=== PATIENT | female | born 1955 | race Caucasian/White ===

== ENCOUNTER → 2019-03-24 15:36 | Outpatient (CLI) | payer MEDICARE, OTHER, SELFPAY ==
--- NOTE | 2019-03-24 15:39 | DI.MRI.S_ITS ---
PROCEDURE: MR LUMBAR SPINE WO CON INDICATIONS: Axial low back pain TECHNIQUE: Noncontrast sagittal T1 spin echo and T2 fast echo, sagittal STIR, axial T1 and T2 fast spin echo through the lumbar spine. In cases with scoliosis, additional coronal T2 fast spin echo may be performed. COMPARISON: None. FINDINGS: Image quality: Excellent. Alignment and Curvature: There is normal bony alignment. Bone Marrow: No fracture. Multilevel degenerative endplate sclerosis and spurring. Diffuse facet arthropathy. Spinal Cord: Conus medullaris terminates at the L1 level. Visualized cord demonstrates normal signal and size. Paraspinous Soft Tissues: No paravertebral masses. L1-L2: Normal appearance. L2-L3: Normal appearance. L3-L4: Dorsal epidural lipomatosis is present. There is moderate canal narrowing. Partial effacement of both lateral recesses with bilaterally symmetric appearance. Moderate left foraminal stenosis with nerve root compression. Severe right foraminal stenosis with nerve root compression. L4-L5: Posterior annular fissure. Dorsal epidural lipomatosis and mild-moderate central canal narrowing. Partial effacement of both lateral recesses with bilaterally symmetric appearance. Mild left foraminal narrowing. Mild to moderate right foraminal stenosis with slight nerve root compression L5-S1: No central canal narrowing. Lateral recesses appear grossly patent. No definite foraminal stenosis IMPRESSION: Mild-moderate central canal narrowing at L3-L4 and L4-L5 although this is partially due to dorsal epidural lipomatosis Severe right L3-L4 foraminal narrowing Moderate left of L4 foraminal narrowing Mild-moderate right L4-L5 foraminal stenosis Dictated by: Josesito Morales M.D. on 03/24/2019 at 17:14 Approved by: Josesito Morales M.D. on 03/24/2019 at 17:20
== END ==
PROVIDERS: PCP Family Medicine; Visit Provider Physical Medicine & Rehabilitation
DX: M54.5 Low back pain (principal); M48.061 Spinal stenosis, lumbar region without neurogenic claudication; E88.2 Lipomatosis, not elsewhere classified
CPT/HCPCS: 72148

== ENCOUNTER 2019-04-29 13:25 | Outpatient (CLI) | payer MEDICARE, OTHER, SELFPAY ==
[2019-04-29] VITALS (9 sets, daily range): BP systolic 139–172; BP diastolic 63–84; PULSE 68–76; RESP 16–18; TEMP 36.2; O2SAT 98–100
--- NOTE | 2019-04-29 13:28 | DI.RAD.S_ITS ---
PROCEDURE: PAIN L/S FACET INJ/BLK 1ST PAULA COMPARISON: None. INDICATIONS: 14850, [id number]- Bilateral L3/4, L4/5 Facet Joint Injection FINDINGS: Fluoroscopic spot filming was performed to verify placement of spinal needles at the L3-L4, L4-L5 level(s), as labeled on the films. Appropriate location(s) of the needle tip(s) was confirmed by injection of iodinated contrast. Dictated by: Josesito Morales M.D. on 04/29/2019 at 16:13 Approved by: Josesito Morales M.D. on 04/29/2019 at 16:13
[2019-04-29] MEDS: MIDAZOLAM 5 MG/5 ML VIAL IV (14:11)
[2019-04-29] MEDS: fentaNYL 100 MCG/2 ML INJ 50 MCG IV (14:12)
[2019-04-29] MEDS: IOPAMIDOL 15 ML VIAL 3 ML INJ (14:16)
[2019-04-29] MEDS: BETAMETHASONE 30 MG/5 ML MDV 12 MG INJ (14:17)
[2019-04-29] MEDS: BUPIVACAINE 0.5% (PF) VIAL 2 ML INJ (14:17)
--- NOTE | 2019-04-29 14:25 | P.PCN_ITS ---
Procedures Date/Time Date of procedure: 04/29/19 Time of procedure: 14:25 General Procedure description: PREOP DIAGNOSIS 1. FACET ARTHROPATHY 2. AXIAL LBP 3. MULTILEVEL DDD POST OP DIAGNOSIS 1. FACET ARTHROPATHY 2. AXIAL LBP 3. MULTILEVEL DDD PROCEDURES 1. FLUORSCOPICALLY GUIDED CONTRAST CONTROLLED FACET JOINT INJECTIONS BILATERAL L3/4, L4/5 PHYSICIAN: Steven Sol DO INDICATIONS: Kristy is referred by for treatment of Axial LBP FINDINGS Multilevel Facet Arthropathy with Clinically significant axial LBP DESCRIPTION OF PROCEDURE Fluoroscopically guided, contrast-controlled bilateral L3/4, L4/5 facet joint in jections. Following review of allergy and review of potential side effects and complications, including, but not necessarily limited to, infection, allergic reaction, local tissue breakdown, stroke, temporary or permanent nerve injury, paralysis, and possible , the patient indicated that the patient understood and agreed to proceed. An informed consent document was signed by the patient, witnessed by a nurse, and placed in the patient's chart. Additionally, other treatment options including medications, modalities, and physical therapy were reviewed with the patient. After review of previous anaesthesic history and IV conscious sedation the patient was deemed safe to proceed with todays procedure with IV conscious sedation as ASA class II designation. Safety time-out was performed to confirm patient ID, procedure to be performed and site of procedure. IV sedation was accomplished with a combination of 3mg of Versed and 50mcg of Fentanyl was administered by the RN after DO order, titrated to patient comfort during the course of the procedure while the patient remained responsive to all verbal commands. In the prone position, following sterile prep and drape of the lumbar region, the posterior aspect of the L3/4, L4/5 facet joints were identified fluoroscopically. The skin was anesthetized via a 25-gauge 1.5-inch needle with 1% lidocaine solution into the corresponding facet joints. At this point, a 22- gauge 3.5-inch spinal needle was atraumatically introduced and advanced under fluoroscopic guidance into the corresponding facet joints. Following negative aspiration, injections of approximately 0.2-cc of Isovue 200 confirmed interarticular placement without vascular uptake. The identical procedure was then performed at the L3/4, L4/5 facet joints on the left. Radiological data, including multiple fluoroscopic views of the lumbosacral spine, reveal a spinal needle at the L3/4, L4/5 facet joints bilaterally. Subsequent views show flow of contrast material both superiorly and inferiorly within the joint space without vascular or intrathecal uptake. At this point, a total of 0.5cc including a mixture of 0.25cc Marcaine and 0.25cc betamethasone was injected without complication into each of the corresponding facet joints. The patient tolerated the procedure well without signs or symptoms of complications prior to transfer to the recovery area continued monitoring without incident. The patient was then transferred to the recovery area where they were observed for an appropriate period of time after the injection. The patient reported a VAS score of 7 prior to the procedure and a post-procedure VAS of 1. Total Fluoroscopy Time: 8 seconds Total Conscious Sedation Time: 24min POST OP INSTRUCTIONS The patient was provided a Pain Log to continue to record their response to the target-specific procedure prior to follow-up visit with their referring physician. Additionally, specific post-injection care instructions and a contact number to our office were provided if concerns arise regarding possible complications associated with the procedure are suspected. Steven Sol DO Complications: none
--- NOTE | 2019-04-29 14:32 | PC.NURSE ---
ACCEPTED CARE OF PT IN POST PROC AREA AT 1432. PT IN STABLE CONDITION.
--- NOTE | 2019-04-29 16:16 | PC.NURSE ---
at 1421 able to sit,stand and transfer self to w/c, painfree, transfering care to amrik wilson
== END 2019-04-29 14:58 | disposition home or self-care (01) ==
LOC: RAD 13:27
PROVIDERS: PCP Family Medicine; Referring Provider Physical Medicine & Rehabilitation; Visit Provider Physical Medicine & Rehabilitation
DX: M47.816 Spondylosis without myelopathy or radiculopathy, lumbar region (principal); M54.5 Low back pain; M51.36 Other intervertebral disc degeneration, lumbar region
CPT/HCPCS: 64493; 64494; 99152; J0702; J2250; J3010

== ENCOUNTER → 2019-07-12 10:25 | Outpatient (CLI) | payer MEDICARE, OTHER, SELFPAY ==
[2019-07-13 21:53] LABS: COVID19 Sendout Not Detected (Not Detect)
== END ==
PROVIDERS: PCP Family Medicine; Visit Provider Family Medicine
DX: Z01.812 Encounter for preprocedural laboratory examination (principal)
CPT/HCPCS: 87635

== ENCOUNTER 2019-07-15 13:39 | Outpatient (CLI) | payer MEDICARE, OTHER, SELFPAY ==
[2019-07-15] VITALS (10 sets, daily range): BP systolic 131–196; BP diastolic 61–87; PULSE 60–69; RESP 15–16; TEMP 36.6; O2SAT 96–100
--- NOTE | 2019-07-15 13:43 | DI.RAD.S_ITS ---
PROCEDURE: PAIN L/S FACET INJ/BLK 1ST PAULA COMPARISON: [facility], , PAIN L/S FACET INJ/BLK 1ST PAULA, 04/29/2019, 14:13. INDICATIONS: SPONDYLOSIS Fluoroscopic spot filming was performed to verify placement of spinal needles at the L3, L4, L5 level(s), as labeled on the films. Appropriate location(s) of the needle tip(s) was confirmed by injection of iodinated contrast. Dictated by: Josesito Morales M.D. on 07/15/2019 at 16:01 Approved by: Josesito Morales M.D. on 07/15/2019 at 16:02
[2019-07-15] MEDS: fentaNYL 100 MCG/2 ML INJ 50 MCG IV (14:30)
[2019-07-15] MEDS: MIDAZOLAM 5 MG/5 ML VIAL IV (14:30)
[2019-07-15] MEDS: BUPIVACAINE 0.5% (PF) VIAL 2 ML INJ (14:40)
[2019-07-15] MEDS: LIDOCAINE 1% 20 ML 10 ML INJ (14:40)
[2019-07-15] MEDS: IOPAMIDOL 15 ML VIAL 3 ML INJ (14:40)
--- NOTE | 2019-07-15 14:42 | PC.NURSE ---
ASSISTING PT OFF TABLE AND TRANSPORTING TO POST PROC AREA IN STABLE CONDITION. PASSING RN CARE OF PT TO [facility].
--- NOTE | 2019-07-15 14:47 | PM.PROC.1 ---
Procedures Date/Time Date of procedure: 07/15/19 Time of procedure: 14:47 General Procedure description: Procedure description: 1. FACET ARTHROPATHY PROCEDURES: 1. BILATERAL- L4, L5 and S1 DIAGNOSTIC MB BLOCKS with LA Anesthetic PHYSICIAN: Steven Sol DO INDICATIONS Kristy is referred by for treatment of Bilateral Axial LBP. DESCRIPTION OF PROCEDURE Fluoroscopically guided, contrast-controlled bilateral L4, L5 and S1 medial branch blocks with 0.5cc of 0.5% Marcaine. Following review of allergy and review of potential side effects and complications, including, but not necessarily limited to, infection, allergic reaction, local tissue breakdown, nerve injury, paralysis, stroke and possible , the patient indicated that the patient understood and agreed to proceed. An informed consent document was signed by the patient, witnessed by a nurse, and placed in the patient's chart. After review of previous anaesthesic history and IV conscious sedation the patient was deemed safe to proceed with todays procedure with IV conscious sedation as ASA class II designation. Safety time-out was performed to confirm patient ID, procedure to be performed and site of procedure. IV sedation was accomplished with a combination of 2mg of Versed and 50mcg of Fentanyl was administered by the RN after DO order, titrated to patient comfort during the course of the procedure while the patient remained responsive to all verbal commands In the prone position, following sterile prep and drape of the lumbar region, the right L4, L5 and S1 anatomical location of the medial branch of the dorsal ramus was identified fluoroscopically. Subsequently an anesthetic skin wheal using 1% lidocaine solution was initiated at each of the anatomical spots. Subsequently then a 22-gauge 3.5-inch spinal needle was atraumatically introduced and advanced under fluoroscopic guidance at each of the corresponding sites at the right L4, L5 and S1 MB. After negative aspiration, 0.2cc of Isovue 200 was injected, confirming placement without vascular or intrathecal uptake. Subsequently then 0.5cc of 0.5% Marcaine solution was injected at each of the corresponding sites at the right L4, L5 and S1 medial branch locations. The identical procedure was replicated on the left. The patient tolerated the procedure well without signs or symptoms of complications prior to transfer to the recovery area continued monitoring without incident. Post-procedure, the patient was monitored initiating provocative activities to measure the amount of relief from block of the facetogenic pain. The patient reported a VAS of 7 prior to the procedure and a post-procedure VAS of 1. It has been a pleasure to assist in the diagnostic and therapeutic care of your patient. Total Fluoroscopy Time: 9 seconds Total Conscious Sedation Time: 24min POST OP INSTRUCTIONS The patient was provided with a Pain Log to complete over the next several hours and subsequent days prior to the patient's follow up with the ordering physician. 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 The patient is aware, was provided, once again, with a Pain Log and will follow up with the referring physician for review and clinical correlation Steven Sol DO Complications: none
== END 2019-07-15 15:12 | disposition home or self-care (01) ==
PROVIDERS: PCP Family Medicine; Referring Provider Physical Medicine & Rehabilitation; Visit Provider Physical Medicine & Rehabilitation
DX: M47.816 Spondylosis without myelopathy or radiculopathy, lumbar region (principal); M47.817 Spondylosis without myelopathy or radiculopathy, lumbosacral region; M54.5 Low back pain
CPT/HCPCS: 64493; 64494; 99152; J2250; J3010

== ENCOUNTER → 2019-10-11 08:29 | Outpatient (CLI) | payer MEDICARE, OTHER, SELFPAY ==
[2019-10-12 21:10] LABS: COVID19 Sendout Not Detected (Not Detect)
== END ==
PROVIDERS: PCP Family Medicine; Visit Provider Physician Assistant
DX: Z11.59 Encounter for screening for other viral diseases (principal)
CPT/HCPCS: 87635

== ENCOUNTER 2019-10-14 10:07 | Outpatient (CLI) | payer MEDICARE, OTHER, SELFPAY ==
[2019-10-14] VITALS (13 sets, daily range): BP systolic 125–192; BP diastolic 71–102; PULSE 65–71; RESP 11–20; TEMP 36.4; O2SAT 94–100
--- NOTE | 2019-10-14 10:09 | DI.RAD.S_ITS ---
PROCEDURE: PAIN L/S MED/LAT N RFA BILAT INDICATIONS: SPONDYLOSIS COMPARISON: None. FINDINGS: Fluoroscopic spot filming was performed to verify placement of spinal needles at the L4, L5, S1 level(s), as labeled on the films. Appropriate location(s) of the needle tip(s) was confirmed by injection of iodinated contrast. Dictated by: Josesito Morales M.D. on 10/14/2019 at 14:24 Approved by: Josesito Morales M.D. on 10/14/2019 at 14:24
[2019-10-14] MEDS: fentaNYL 100 MCG/2 ML INJ 50 MCG IV (11:38)
[2019-10-14] MEDS: MIDAZOLAM 5 MG/5 ML VIAL IV ×2 (11:40→12:00)
[2019-10-14] MEDS: LIDOCAINE 1% 20 ML 10 ML INJ (12:02)
[2019-10-14] MEDS: BUPIVACAINE 0.5% (PF) VIAL 5 ML INJ (12:02)
--- NOTE | 2019-10-14 12:20 | P.PCN_ITS ---
Date/Time/Diagnoses Date of procedure: 10/14/19 Time of procedure: 12:24 Pre-procedure diagnosis: 1. RECALCITRANT FACET ARTHROPATHY Post-procedure diagnosis: same Procedure Notes Procedure: 1. BILATERAL L4 AND L5 MEDIAL BRANCH RADIOFREQUENCY NEUROTOMY AND S1 DORSAL RAMUS BRANCH RADIOFREQUENCY NEUROTOMY Indications: Kristy is referred by Dr. Knutson for treatment of facet arthropathy. Physician: Steven Sol Total Fluoroscopy time (seconds): 19 Total sedation minutes: 38 Complications: none Procedure in detail & Post-procedure care: DESCRIPTION OF PROCEDURE Bilateral L4 and L5 medial branch radiofrequency neurotomy and bilateral S1 dorsal ramus radiofrequency neurotomy under fluoroscopy with conscious sedation. The patient is well known to this clinic having undergone previous facet injections with good but temporary relief. The patient has experienced appropriate, concordant relief with previous facet and median branch blocks but the patient's pain has been recalcitrant to further conservative measures. Therefore, based upon the patient's relief and persistent symptoms, the patient is considered an appropriate candidate for facet rhizotomy. All of the patient's questions regarding the risks versus benefits of the procedure, including, but not limited to, bleeding, infection, temporary as well as lasting nerve injury, paralysis, stroke, and , as well treatment alternatives were answered to satisfaction. After obtaining informed consent, denial of pertinent drug allergies, as well as being made aware of the potential risks of bleeding, infection, spinal cord trauma, paralysis, temporary and permanent nerve damage, seizure, stroke, and possible , the patient was brought to the fluoroscopy suite and positioned prone on the fluoroscopy table. The lumbar region was prepped with Betadine and covered with a fenestrated drape in the usual sterile fashion. Appropriate monitors applied including pulse oximeter, pulse, and blood pressure for regular monitoring throughout the procedure. After review of previous anaesthesic history and IV conscious sedation the patient was deemed safe to proceed with today's procedure with IV conscious sedation as ASA class II designation. Safety time-out was performed to confirm patient ID, procedure to be performed and site of procedure. IV sedation was accomplished with a combination of 7mg of Versed and 50mcg of Fentanyl administered by the RN after DO order, titrated to patient comfort during the course of the procedure while the patient remained responsive to all verbal commands. After local infiltration using 1% lidocaine, under fluoroscopic guidance, a 10- cm RF insulated needle with a 10-mm active tip was positioned parallel to the junction of the right sacral ala and the superior articulating process where the S1 dorsal ramus resides. Needle placement was confirmed with motor stimulation of .5v on the right which produced local stimulation without radicular component. The stimulation was then increased to 1.5v with, once again, only local multifidus stimulation without radicular component. The needle was then removed and the identical procedure was performed along the length of the right L5 medial branch with motor stimulation at .7v on the right. The identical procedure was once again performed along the length of the right L4 medial branch with motor stimulation of .5v on the right. The medial branches were then anesthetised with 0.5% Marcaine. This was then followed by two discreet lesions performed at 80 degrees Celsius for 90 seconds each. The identical procedure was repeated on the left. The patient tolerated the procedure well without signs or symptoms of complications prior to transfer to the recovery area continued monitoring without incident. The patient was then transferred to the recovery area where they were observed for an appropriate period of time after the injection. The patient reported a VAS score of 7 prior to the procedure and a post-procedure VAS of 0. POST OP INSTRUCTIONS The patient was provided a Pain Log to continue to record the patient's response to the target-specific procedure prior to the patient's follow-up visit with the referring physician. Additionally, specific post-injection care instructions and a contact number to our office were provided if concerns arise regarding possible complications associated with the procedure are suspected.
--- NOTE | 2019-10-14 13:36 | PC.NURSE ---
Patient returned via wheelchair post procedure, alert and able to geto from the wheelchair to chair with standby assistance. Resumed monitoring from [facility].
== END 2019-10-14 12:58 | disposition home or self-care (01) ==
LOC: RAD 10:08
PROVIDERS: PCP Family Medicine; Referring Provider Family Medicine; Visit Provider Physical Medicine & Rehabilitation
DX: M47.816 Spondylosis without myelopathy or radiculopathy, lumbar region (principal); M47.817 Spondylosis without myelopathy or radiculopathy, lumbosacral region
CPT/HCPCS: 64635; 64636; 99152; 99153; J2250; J3010

== ENCOUNTER → 2020-01-26 11:27 | Outpatient (CLI) | payer MEDICARE, OTHER, SELFPAY ==
[2020-01-26 12:32] LABS: COVID19 -Nasal RAPID Negative (Negative)
== END ==
PROVIDERS: PCP Family Medicine; Visit Provider Physical Medicine & Rehabilitation
DX: Z01.812 Encounter for preprocedural laboratory examination (principal); Z11.59 Encounter for screening for other viral diseases
CPT/HCPCS: 87635; C9803

== ENCOUNTER 2020-01-27 13:02 | Outpatient (CLI) | payer MEDICARE, OTHER, SELFPAY ==
[2020-01-27] VITALS (8 sets, daily range): BP systolic 108–155; BP diastolic 57–79; PULSE 60–74; RESP 13–18; TEMP 36.6; O2SAT 97–100
--- NOTE | 2020-01-27 13:04 | DI.RAD.S_ITS ---
PROCEDURE: XR CERVICAL SPINE 4V OR 5V INDICATIONS: progressive neck pain. TECHNIQUE: 5 views of the cervical spine acquired. COMPARISON: None. FINDINGS: Bones: No fractures or dislocations to the T1 level. Oblique images demonstrate bilateral C5 through C7 foraminal stenosis, symmetric. No trauma induced bony foraminal stenoses. Soft tissues: No prevertebral soft tissue swelling. IMPRESSION: No trauma found. Moderate to moderately severe degenerative disc disease is present at C5-6 and C6-7 in addition to symmetric bilateral facet osteoarthritis at these 2 levels producing moderate foraminal stenosis at these areas. Dictated by: Robbie Alvarez M.D. on 01/27/2020 at 14:06 Approved by: Robbie Alvarez M.D. on 01/27/2020 at 14:07
--- NOTE | 2020-01-27 13:04 | DI.RAD.S_ITS ---
PROCEDURE: PAIN L INTERLAMINAR/CAUDAL INJ INDICATIONS: SPONDYLOSIS COMPARISON: None. FINDINGS: Fluoroscopic spot filming was performed to verify placement of spinal needles at the posterior midline at L 4-L5 interlaminar level(s), as labeled on the films. Appropriate location(s) of the needle tip(s) was confirmed by injection of iodinated contrast. IMPRESSION: Dorsal interlaminar L4-L5 needle tip localization for epidural steroid injection. Dictated by: Robbie Alvarez M.D. on 01/27/2020 at 15:23 Approved by: Robbie Alvarez M.D. on 01/27/2020 at 15:23
[2020-01-27] MEDS: fentaNYL 100 MCG/2 ML INJ 50 MCG IV (14:05)
[2020-01-27] MEDS: MIDAZOLAM 5 MG/5 ML VIAL IV (14:05)
[2020-01-27] MEDS: BUPIVACAINE 0.25% (PF) VIAL 2 ML INJ (14:16)
[2020-01-27] MEDS: IOPAMIDOL 15 ML VIAL 3 ML INJ (14:17)
[2020-01-27] MEDS: DEXAMETHASONE 10 MG/ML VIAL 20 MG INJ (14:17)
[2020-01-27] MEDS: BETAMETHASONE 30 MG/5 ML MDV 6 MG INJ (14:17)
--- NOTE | 2020-01-27 14:21 | P.PCN_ITS ---
Date/Time/Diagnoses Date of procedure: 01/27/20 Time of procedure: 14:21 Pre-procedure diagnosis: 1. HNP WITH RADICULAR FEATURES 2. MULTILEVEL CENTRAL STENOSIS Post-procedure diagnosis: same Procedure Notes Procedure: 1. FLUOROSCOPICALLY GUIDED CONTRAST CONTROLLED INTERLAMINAR EPIDURAL STEROID INJECTION - L4/5 Indications: Kristy is referred by Dr. Knutson for treatment of Bilateral Foraminal Stenosis L>R LE symptoms. Physician: Steven Sol Total Fluoroscopy time (seconds): 6 Total sedation minutes: 11 Complications: none Procedure in detail & Post-procedure care: FINDINGS Multilevel Central Spinal Stenosis with Nerve Root Compression DESCRIPTION OF PROCEDURE Fluoroscopically guided, contrast-controlled L4/5 translaminar epidural steroid injection. Following review of allergy and review of potential side effects and complications, including, but not necessarily limited to, infection, allergic reaction, local tissue breakdown, temporary as well as permanent nerve injury, paralysis, stroke and possible , the patient indicated that the patient understood and agreed to proceed. An informed consent document was signed by the patient, witnessed by a nurse, and placed in the patient's chart. Additionally, other treatment options including modalities, medications, and physical therapy were reviewed with the patient. After review of previous anaesthesic history and IV conscious sedation the patient was deemed safe to proceed with today?s procedure with IV conscious sedation as ASA class II designation. Safety time-out was performed to confirm patient ID, procedure to be performed and site of procedure. IV sedation was accomplished with a combination of 2mg of Versed and 50mcg of Fentanyl was administered by the RN after DO order, titrated to patient comfort during the course of the procedure while the patient remained responsive to all verbal commands. In the prone position, following sterile prep and drape of the lumbar region, the L4/5 translaminar space was identified fluoroscopically. The skin was anesthetized via a 25-gauge, 1.5-inch needle with 1% lidocaine solution. At this point, a 22-gauge short bevel spinal needle was atraumatically introduced and advanced under fluoroscopic guidance into the region of the L4/5 translaminar space. Depth was confirmed on lateral view. Radiological data, including multiple fluoroscopic views of the lumbar spine, reveal a spinal needle at the L4/5 translaminar space. Lateral views then show placement of the needle in the epidural space. Subsequent views show contrast material flowing superiorly and inferiorly in the epidural space. No vascular or intrathecal uptake is observed. At this point, using loss of resistance technique with saline and air, the epidural space was entered. This was confirmed following negative aspiration with injection of approximately 1.5cc of Isovue 200, showing excellent epidural flow without vascular or intrathecal uptake. At this point, 1cc of 1% lidocaine solution combined with 3cc or 20mg of dexamethasone and 6mg of betamethasone was injected without incident. The patient tolerated the procedure well without signs or symptoms of c omplications prior to transfer to the recovery area continued monitoring without incident. The patient was then transferred to the recovery area where they were observed for an appropriate period of time after the injection. The patient reported a VAS score of 6 prior to the procedure and a post- procedure VAS of 0. POST OP INSTRUCTIONS The patient was provided a Pain Log to continue to record their response to the target-specific procedure prior to follow-up visit with their referring physician. Additionally, specific post-injection care instructions and a contact number to our office were provided if concerns arise regarding possible complications associated with the procedure are suspected.
== END 2020-01-27 14:43 | disposition home or self-care (01) ==
LOC: RAD 13:03
PROVIDERS: PCP Family Medicine; Referring Provider Family Medicine; Visit Provider Physical Medicine & Rehabilitation
DX: M51.16 Intervertebral disc disorders with radiculopathy, lumbar region (principal); M48.061 Spinal stenosis, lumbar region without neurogenic claudication; M50.122 Cervical disc disorder at C5-C6 level with radiculopathy; M47.22 Other spondylosis with radiculopathy, cervical region; M48.02 Spinal stenosis, cervical region
CPT/HCPCS: 62323; 72050; 99152; J0702; J1100; J2250; J3010

== ENCOUNTER 2020-04-17 15:35 | Emergency (ER) | payer MEDICARE, OTHER, SELFPAY ==
[2020-04-17 15:37] VITALS: BP 187/77; PULSE 90; RESP 18; TEMP 36.7; O2SAT 100; BMI 34.3
--- NOTE | 2020-04-17 15:49 | DI.RAD.S_ITS ---
PROCEDURE: XR WRIST RT MIN 3V INDICATIONS: fall with injury TECHNIQUE: 4 views of the wrist were acquired. COMPARISON: None. FINDINGS: Bones: Question nondisplaced radial styloid fracture. This is not definite. No suspicious bony lesions. Scaphoid view: Scaphoid intact. Soft tissues: No suspicious soft tissue calcifications. IMPRESSION: Question nondisplaced radial styloid fracture. This is not definite. Suggest correlation with clinical exam. CT may be helpful. Dictated by: Jose De Paz M.D. on 04/17/2020 at 15:59 Approved by: Jose De Paz M.D. on 04/17/2020 at 16:00
--- NOTE | 2020-04-17 16:13 | ED_ITS ---
HPI - Extremity Injury (Upper) General Chief Complaint: Extremity Injury, Upper Stated Complaint: Fall yesterday, right wrist pain Time Seen by Provider: 04/17/20 15:44 Source: patient Mode of arrival: Ambulatory Limitations: no limitations History of Present Illness HPI narrative: Patient is a 65-year-old female who presents with right wrist injury. She fell yesterday will putting something onto a Hutch. She is not sure exactly how she fell that she fell and landed on her right his side. She continues to have right wrist pain she did have some right hip pain but is ambulatory without any difficulty. No head injury or loss of consciousness. MD complaint: injury to: right and wrist Related Data Home Medications Medication Instructions Recorded Confirmed cbd/thc lotion TOPICAL PRN 10/23/18 12/31/19 omeprazole PO PRN 10/23/18 12/31/19 oxycodone 5 mg capsule 5 mg PO Q4-6H PRN 10/23/18 12/31/19 tramadol 50 mg tablet 50 mg PO DAILY PRN 10/23/18 12/31/19 trastuzumab IV Q3W 04/02/19 12/31/19 fluticasone propionate 50 2 spray NASAL DAILY 05/13/19 12/31/19 mcg/actuation nasal spray,suspension hydrochlorothiazide PO DAILY 05/13/19 12/31/19 losartan PO DAILY 05/13/19 12/31/19 acetaminophen [Tylenol] 500 mg PO Q4H PRN 07/15/19 12/31/19 cetirizine 10 mg PO DAILY PRN 07/15/19 12/31/19 aspirin 81 mg tablet,delayed 81 mg PO DAILY 09/01/19 12/31/19 release bupropion HCl 150 mg 24 hr tablet, mg PO 09/01/19 12/31/19 extended release carvedilol 25 mg tablet mg PO 09/01/19 12/31/19 ascorbic acid 1,000 mg PO 12/31/19 12/31/19 es-evnvepywtywo-okirrbrj powder effervescent pack biotin 1 mg tablet 1 mg PO DAILY 12/31/19 12/31/19 duloxetine 20 mg capsule,delayed 20 mg PO BID 12/31/19 12/31/19 release Allergies Allergy/AdvReac Type Severity Reaction Status Date / Time diphenhydramine Allergy causes my Verified 12/31/19 15:50 [From Benadryl] body to jerk gabapentin AdvReac Severe hallucinati Verified 12/31/19 15:50 ons Review of Systems Review of Systems Narrative: GENERAL: Denies chills,fever HEENT: Denies throat pain RESPIRATORY: Denies dyspnea, cough, wheezing CARDIOVASCULAR: Denies chest pain, palpitations GASTROINTESTINAL: Denies nausea, vomiting MUSCULOSKELETAL: See HPI SKIN: No rash, no laceration, no pruritus NEUROLOGIC: Denies weakness, dizziness, headache, numbness 8 point review of systems is negative except for those stated above and HPI Patient History Medical History (Updated 04/17/20 @ 16:17 by Uyen Espinosa DO) Cervical radiculopathy Facet arthropathy, lumbar Herniated nucleus pulposus, L3-4 left Intraductal carcinoma of left breast Lumbosacral spondylosis with radiculopathy Surgical History History of ankle surgery History of carpal tunnel surgery History of cataract surgery History of lumpectomy Family History Mother Heart disease Breast cancer Father Heart disease Prostate cancer Stroke Social History marital status: Smoking Status: Never smoker alcohol intake: current Smoking Status: Never smoker Substance Use Type: does not use Exam Initial Vital Signs Initial Vital Signs: Vital Signs Temperature 98.1 F 04/17/20 15:37 Pulse Rate 90 04/17/20 15:37 Respiratory Rate 18 04/17/20 15:37 Blood Pressure 187/77 H 04/17/20 15:37 Pulse Oximetry 100 04/17/20 15:37 GENERAL: Well-appearing, well-nourished and in no acute distress. HEENT: Head atraumatic,EOMI, pupils reactive, face symmetric, moist mucous membranes CARDIOVASCULAR: Regular rate and rhythm without murmurs, rubs or gallops. RESPIRATORY: Breath sounds equal bilaterally, no wheezes rales or rhonchi. EXTREMITIES: Normal range of motion, no clubbing or edema. Neurovascularly intact Right wrist tenderness on radial side strong peripheral radial pulse minimal swelling no erythema. Sensation in radial median and ulnar nerves intact Right hip is non tender good internal and external rotation NEUROLOGICAL: Alert and oriented x4.Normal gait and speech. Cranial nerves II through XII grossly intact. SKIN: Warm, dry, no laceration, no petechiae, no rashes or lesions. Procedures Orthopedic Splinting/Casting Injury #1: Side: right Upper Extremity Injury Location: wrist Upper Extremity Immobilizer: wrist splint Post splinting neuro exam: intact Post splinting vascular exam: intact Placed by: Nursing Course Orders Ordered: ED Orders 04/17/20 15:49 XR wrist RT min 3V Stat Vital Signs Vital signs: Vital Signs - 8 hr 04/17/20 15:37 04/17/20 17:00 Temperature 98.1 F Pulse Rate 90 87 Respiratory Rate 18 18 Blood Pressure 187/77 H 124/67 Pulse Oximetry 100 99 MDM - Extremity Injury (Upper) Imaging Data Extremity x-ray #1: Radiologist's Impression: PROCEDURE: XR WRIST RT MIN 3V INDICATIONS: fall with injury TECHNIQUE: 4 views of the wrist were acquired. COMPARISON: None. FINDINGS: Bones: Question nondisplaced radial styloid fracture. This is not definite. No suspicious bony lesions. Scaphoid view: Scaphoid intact. Soft tissues: No suspicious soft tissue calcifications. IMPRESSION: Question nondisplaced radial styloid fracture. This is not definite. Suggest correlation with clinical exam. CT may be helpful. Dictated by: Jose De Paz M.D. on 04/17/2020 at 15:59 Discharge Plan Departure Patient Disposition: Home Clinical Impression: Closed right radial fracture Instructions: DI for Distal Radius Fracture Activity Restrictions/Additional Instructions: *You have been diagnosed with right radial fracture *What to do: Keep splint on at all times. You have a very subtle fract ure/broken bone. This will take 4-6 weeks to heal but will on the likely require any surgical intervention. Nonetheless I recommend he follow up with Orthopedics. *Continue to take medications as directed Tylenol 650 mg every 4-6 hours if needed for bosp-wu-[id number] pain *Follow up with your primary care provider in 2-3 days *Return to ER if you should have increasing pain, numbness tingling or swelling or any new, worsening or concerning symptoms Prescriptions: No Action cetirizine 10 mg Tablet 10 mg PO DAILY PRN (Reason: allergies) RF: 0 acetaminophen [Tylenol] 325 mg Capsule 500 mg PO Q4H PRN (Reason: Pain (Scale Score 1-3)) RF: 0 tramadol 50 mg tablet 50 mg PO DAILY PRNRF: 0 omeprazole PO PRNRF: 0 oxycodone 5 mg capsule 5 mg PO Q4-6H PRNRF: 0 cbd/thc lotion topical PRN (Reason: Pain (Scale Score 1-3)) RF: 0 trastuzumab IV Q3W RF: 0 losartan PO DAILY RF: 0 hydrochlorothiazide PO DAILY RF: 0 fluticasone propionate 50 mcg/actuation spray,suspension 2 spray NASAL DAILY RF: 0 carvedilol 25 mg tablet PO RF: 0 bupropion HCl 150 mg tablet extended release 24 hr PO RF: 0 aspirin [Adult Aspirin Regimen] 81 mg tablet,delayed release (DR/EC) 81 mg PO DAILY RF: 0 duloxetine [Cymbalta] 20 mg capsule,delayed release(DR/EC) 20 mg PO BID RF: 0 biotin 1 mg tablet 1 mg PO DAILY RF: 0 Emergen-C Immune Plus 1,000 mg powder effervescent in packet PO RF: 0 Referrals: Camryn Knutson DO [Primary Care Provider] -
[2020-04-17 17:00] VITALS: BP 124/67; PULSE 87; RESP 18; O2SAT 99
== END 2020-04-17 16:40 | disposition home or self-care (01) ==
PROVIDERS: Emergency Provider Emergency Medicine; PCP Family Medicine
DX: S52.91XA Unspecified fracture of right forearm, initial encounter for closed fracture (principal); W19.XXXA Unspecified fall, initial encounter; Z79.82 Long term (current) use of aspirin
CPT/HCPCS: 73110; 99281; 99283

== ENCOUNTER → 2021-07-18 13:28 | Outpatient (CLI) | payer MEDICARE, OTHER, SELFPAY ==
--- NOTE | 2021-07-18 | DI.ECHO.S_ITS ---
[facility]---------+ [facility] +---------+ : : [address] : : : : [id number] : : : : Phone: [phone]+ Echocardiogram Report + + :Name: GABRIELA QUIJANO Study Date: 07/18/2021 Height: 64 in : :[facility] ReadingLocation: Weight: 185 lb : : Gender: Female BSA: 1.9 m2 : :: 1955 Age: 66 yrs BP: 146/87 mmHg: :Reason For Study: HYPERTENSION : :Ordering Physician: ROXANN, : :PIERCE Performed By: Gisselle Fuchs : :Referring: PIERCE HACKETT : + + Interpretation Summary Normal sinus rhythm; uncontrolled hypertension. Normal LV size and wall thickness. Normal wall motion and left ventricular systolic function. Ejection fraction is 60-65%. Stage I diastolic dysfunction. Moderate left atrial enlargement. Otherwise normal chamber sizes. No significant valvular abnormalities. Procedure: A two-dimensional transthoracic echocardiogram with color flow and Doppler was performed. The study quality was technically adequate. There is no prior echocardiogram noted for this patient. The patient was in sinus rhythm with heart rates between 58-66 bpm during the exam. Left Ventricle: The left ventricle is normal in size and wall thickness. The ejection fraction is estimated to be 60-65%. Right Ventricle: The right ventricle is normal in size and function. Atria: The left atrium is moderately dilated. Right atrial size is normal. There is no Doppler evidence for an interatrial shunt. Mitral Valve: The mitral valve leaflets appear borderline thickened, but open well. There is mild mitral regurgitation. Aortic Valve: The aortic valve is trileaflet. The aortic valve opens well. There is no aortic valve stenosis. No aortic regurgitation is present. Tricuspid Valve: The tricuspid valve is normal in structure and function. No tricuspid regurgitation. Pulmonic Valve: The pulmonic valve leaflets are thin and pliable; valve motion is normal. There is trace pulmonic regurgitation. Great Vessels: The aortic root is normal size. The dimensions of the ascending aorta are normal. The IVC is of normal diameter and collapses greater than 50% with a sniff. This suggests a low right atrial pressure of 3 mm Hg. Pericardium/ Pleura There is no pericardial effusion. There is no pleural effusion. MMode/2D Measurements & Calculations LVIDd: 4.8 cm LVOT diam: 2.0 cm LVIDs: 3.1 cm Ao root diam: 2.8 cm FS: 34.6 % asc Aorta Diam: 3.3 cm IVSd: 0.66 cm Ao Arch Diam (Prox Trans): 2.9 cm LVPWd: 0.78 cm LV glez. diameter/BSA (cm/m^2): 2.5 LV sys. diameter/BSA (cm/m^2): 1.6 LA A2 area: 25.6 cm2 RA long axis: 5.1 cm LA A4 area: 21.3 cm2 RA area: 16.8 cm2 LA length (vol): 5.8 cm RA vol: 47.1 ml LA vol: 79.8 ml RA : 24.9 ml/m2 LA vol index: 42.1 ml/m2 IVC diam: 1.2 cm RVDd major: 5.9 cm RVD1 (basal): 3.0 cm RVD2 (mid): 2.7 cm TAPSE: 1.8 cm Doppler Measurements & Calculations Ao V2 max: 143.2 cm/sec LVOT Max Mario: 123.5 cm/sec Ao V2 mean: 97.9 cm/sec LV V1 max P.1 mmHg Ao max P.2 mmHg LV V1 VTI: 29.4 cm Ao mean P.3 mmHg LEXY(I,D): 2.9 cm2 Ao V2 VTI: 31.7 cm LEXY(V,D): 2.7 cm2 sev ratio: 0.93 LEXY indexed to BSA (cm^2/m^2): 1.5 MV E max mario: 85.9 cm/sec PA V2 max: 100.9 cm/sec MV A max mario: 112.7 cm/sec PA V2 mean: 75.8 cm/sec MV E/A: 0.76 PA mean P.4 mmHg Med Peak E' Mario: 5.8 cm/sec PA pr(Accel): 29.3 mmHg E/E' med: 14.7 Lat Peak E' Mario: 6.4 cm/sec E/E' lat: 13.3 E/e' average: 14.0 MV dec time: 0.26 sec SV(LVKAMRAN): 91.8 ml Electronically signed by: Grace Arroyo M.D. on Reading Physician:07/19/2021 05:00 PM
== END ==
PROVIDERS: PCP Family Medicine; Referring Provider Internal Medicine; Visit Provider Internal Medicine
DX: I34.0 Nonrheumatic mitral (valve) insufficiency (principal); I10 Essential (primary) hypertension
CPT/HCPCS: 93306

== ENCOUNTER → 2021-09-17 07:38 | Outpatient (CLI) | payer MEDICARE, OTHER, SELFPAY ==
--- NOTE | 2021-09-17 07:42 | DI.MRI.S_ITS ---
PROCEDURE: MR LUMBAR SPINE WO CON INDICATIONS: Radiculopathy, lumbar region TECHNIQUE: Noncontrast sagittal T1 spin echo and T2 fast echo, sagittal STIR, and T2 fast spin echo through the lumbar spine. In cases with scoliosis, additional coronal T2 fast spin echo may be performed. COMPARISON: [facility], MR, MR LUMBAR SPINE WO CON, 03/24/2019, 15:43. [facility], RG, XR L-SPINE 2-3V, 04/30/2018, 14:26. FINDINGS: Image quality: Excellent. Alignment and Curvature: 5 lumbar type vertebral bodies are present by plain film. Roughly 2 mm of retrolisthesis of L2 on L3. Bone Marrow: Marrow is of normal overall signal. No acute vertebral body compression fractures. Minimal reactive signal throughout the endplates of the lumbar and lower thoracic spine. Hemangioma within the superior L1 vertebral body. Spinal Cord: Conus medullaris terminates at the mid L1 level. Visualized cord demonstrates normal signal and size. Paraspinous Soft Tissues: No paravertebral masses. T11-T12: Moderate disc height loss and desiccation. Mild diffuse disc bulge with superimposed right paracentral protrusion. Mild canal stenosis. Minimal cord flattening. No foraminal stenosis. No significant change. T12-L1: Moderate disc desiccation. No significant canal, or foraminal stenosis. No significant change. L1-L2: Mild disc height loss and desiccation. Mild diffuse disc bulge. Mild facet hypertrophy. Mild canal stenosis. Mild bilateral foraminal stenosis. No significant change. L2-L3: Mild disc desiccation and diffuse disc bulge. Mild facet and ligamentum flavum hypertrophy. Mild canal stenosis. Mild bilateral foraminal stenosis. No significant change. L3-L4: Moderate disc height loss and desiccation. Mild diffuse disc bulge. Mild facet and ligamentum flavum hypertrophy. Mild epidural lipomatosis. Mild canal stenosis. Moderate right greater than left foraminal stenosis. No significant change L4-L5: Moderate disc height loss and desiccation. Mild diffuse disc bulge. Moderate bilateral facet and ligamentum flavum hypertrophy. Mild epidural lipomatosis. There is increased, moderate to severe canal stenosis. No change in mild bilateral foraminal stenosis. L5-S1: Mild disc height loss and desiccation. Mild diffuse disc bulge. Mild bilateral facet hypertrophy. Mild epidural lipomatosis. Mild canal stenosis. No foraminal stenosis. No significant change. IMPRESSION: 1. Multilevel degenerative disc and facet disease, as well as ligamentum flavum hypertrophy and epidural lipomatosis. 2. Multilevel canal stenoses, worst at L4-L5 where there is increased, moderate to severe canal stenosis. 3. Multilevel foraminal stenoses, worst at L3-L4 where there are moderate foraminal stenoses. Dictated by: Aaliyah Ybarra M.D. on 09/19/2021 at 8:35 Approved by: Aaliyah Ybarra M.D. on 09/19/2021 at 8:39
== END ==
PROVIDERS: PCP Nurse Practitioner Family
DX: M51.16 Intervertebral disc disorders with radiculopathy, lumbar region (principal); M51.17 Intervertebral disc disorders with radiculopathy, lumbosacral region; M48.061 Spinal stenosis, lumbar region without neurogenic claudication; M48.07 Spinal stenosis, lumbosacral region
CPT/HCPCS: 72148

== ENCOUNTER 2021-10-27 07:27 | Outpatient (CLI) | payer MEDICARE, OTHER, SELFPAY ==
[2021-10-27] VITALS (10 sets, daily range): BP systolic 139–170; BP diastolic 60–79; PULSE 65–71; RESP 11–21; TEMP 36.2; O2SAT 64–100
--- NOTE | 2021-10-27 07:29 | DI.RAD.S_ITS ---
PROCEDURE: PAIN L/S TRANSFORAMINAL INJECT INDICATIONS: SPONDYLOSIS COMPARISON: [facility], MR, MR LUMBAR SPINE WO CON, 09/17/2021, 8:43. FINDINGS: Fluoroscopic spot filming was performed to verify placement of a spinal needle at the L4-L5 level, as labeled on the films. Appropriate location of the needle tip was confirmed by injection of iodinated contrast. IMPRESSION: Intraprocedural examination within normal limits. Dictated by: Fabian Romero M.D. on 10/27/2021 at 8:53 Approved by: Fabian Romero M.D. on 10/27/2021 at 8:54
--- NOTE | 2021-10-27 08:20 | P.PCN_ITS ---
Date/Time/Diagnoses Date of procedure: 10/27/21 Time of procedure: 08:47 Pre-procedure diagnosis: 1. FORAMINAL STENOSIS WITH LE SYMPTOMS Post-procedure diagnosis: same Procedure Notes Procedure: 1. FLUOROSCOPICALLY GUIDED CONTRAST CONTROLLED TRANSFORAMINAL EPIDURAL STEROID INJECTION - LEFT L4/5 Indications: Kristy is referred by ERYN Dong for treatment of Foraminal Stenosis with Left LE Symptoms Physician: Steven Sol Total Fluoroscopy time (seconds): 17 Total sedation minutes: 12 Complications: none Procedure in detail & Post-procedure care: FINDINGS Foraminal Nerve Root Compression secondary to disc disease and facet hypertrophy DESCRIPTION OF PROCEDURE Following review of allergy and review of potential side effects and complications, including, but not necessarily limited to, infection, allergic reaction, local tissue breakdown, stroke, temporary or permanent nerve injury, paralysis, and possible , the patient indicated that the patient understood and agreed to proceed. An informed consent document was signed by the patient, witnessed by a nurse, and placed in the patient's chart. Additionally, other treatment options including medications, modalities, and physical therapy were reviewed with the patient. After review of previous anaesthesic history and IV conscious sedation the patient was deemed safe to proceed with today?s procedure with IV conscious sedation as ASA class II designation. Safety time-out was performed to confirm patient ID, procedure to be performed and site of procedure. IV sedation was accomplished with a combination of 2mg of Versed administered by the RN after DO order, titrated to patient comfort during the course of the procedure while the patient remained responsive to all verbal commands In the prone position following sterile prep and drape of the lumbar region, the left L4/5 posterior neuroforamen was identified fluoroscopically. The skin was anesthetized via a 25-gauge 1.5-inch needle with 1% lidocaine solution. At this point, a 22-gauge 5-inch spinal needle was atraumatically introduced and advanced under fluoroscopic guidance through the posterior left L4/5 neuroforamen to approximately the anterior aspect of the canal. Depth was confirmed on lateral view. Following negative aspiration, injection of approximately 1.5 cc of Isovue 200 under live fluoroscopy in the AP view confirmed excellent flow along the nerve root, into the epidural space without vascular or intrathecal uptake observed Radiological data, including multiple fluoroscopic views of the lumbosacral spine, reveal a spinal needle at the left L4/5 posterior neuroforamen. Subsequent views show flow of contrast material flowing superiorly and inferiorly along the nerve root confirming epidural flow. Subsequently, a test dose of 1.5 cc of 1% lidocaine solution was administered and patient was observed for two minutes for signs or symptoms of complications, including abdominal pain, shortness of breath, bilateral upper or lower extremity weakness, nausea and vomiting, prior to steroid injection. At this point, a total of 3cc or 20mg of dexamethasone and 6mg of betamethasone was injected without incident. The procedure tolerated the procedure well without signs or symptoms of complications prior to transfer to the recovery area continued monitoring without incident. The patient was then transferred to the recovery area where they were observed for an appropriate time after the injection. The patient reported a VAS score of 7 prior to the procedure and a post- procedure VAS of 0. POST OP INSTRUCTIONS The patient was provided a Pain Log to continue to record their response to the target-specific procedure prior to follow-up visit with their referring physician. Additionally, specific post-injection care instructions and a contact number to our office were provided if concerns arise regarding possible complications associated with the procedure are suspected.
[2021-10-27] MEDS: MIDAZOLAM 2 MG/2 ML VIAL IV (08:30)
[2021-10-27] MEDS: IOPAMIDOL 15 ML VIAL 3 ML INJ (08:40)
[2021-10-27] MEDS: BETAMETHASONE 30 MG/5 ML MDV 6 MG INJ (08:41)
[2021-10-27] MEDS: DEXAMETHASONE 10 MG/ML VIAL 20 MG INJ (08:41)
[2021-10-27] MEDS: BUPIVACAINE 0.25% (PF) VIAL 2 ML INJ (08:41)
== END 2021-10-27 09:05 | disposition home or self-care (01) ==
LOC: RAD 07:29
PROVIDERS: PCP Nurse Practitioner Family; Referring Provider Physical Medicine & Rehabilitation; Visit Provider Physical Medicine & Rehabilitation
DX: M48.061 Spinal stenosis, lumbar region without neurogenic claudication (principal); M51.16 Intervertebral disc disorders with radiculopathy, lumbar region
CPT/HCPCS: 64483; 99152; J0702; J1100; J2250; J3490